=== PATIENT | female | born 1940 | race Caucasian/White ===

== ENCOUNTER 2017-02-09 08:41 | Day surgery (SDC) | payer MEDICARE ==
[~2017-02-09] VITALS: Ht 162.6 cm; Wt 65.8 kg
[~2017-02-09 08:41] MED LIST: AMLO10TA2 PO; CALC-545 PO; CHOL200024 PO; LEVO75TA5 PO; MAGN500T PO; METO25TA35 PO; VITA1TAB19 PO
[2017-02-09 09:29] VITALS: BP 121/72
[2017-02-09] MEDS ORDERED: LACTATED RINGERS 1,000 ML IV SCH (09:30)
[2017-02-09] MEDS ORDERED: FENTANYL PF 100 MCG/2ML ONE (10:56)
[2017-02-09] MEDS ORDERED: ONDANSETRON 2MG/ML, 2ML ONE (10:57)
[2017-02-09] MEDS ORDERED: DEXAMETHASONE 4 MG/ML, 1ML ONE (10:57)
[2017-02-09] MEDS ORDERED: PROPOFOL 10 MG/ML, 20ML ONE (10:57)
[2017-02-09] MEDS ORDERED: CIPROFLOXACIN/PMX 400MG/200ML 200 ML IVPB ONE (10:57)
[2017-02-09] MEDS ORDERED: ACETAMINOPHEN 650 MG/20.3 ML UDC ONE (11:47)
[2017-02-09] MEDS ORDERED: ACETAMINOPHEN 325 MG TABLET ONE (11:48)
[2017-02-09] MEDS ORDERED: ACETAMINOPHEN 325 MG TABLET PO PRN (12:30)
== END 2017-02-09 13:40 | disposition home or self-care (01) ==
LOC: OUT 08:41
PROVIDERS: ATTEND Specialist
DX: Z46.6 Encounter for fitting and adjustment of urinary device (principal); C56.9 Malignant neoplasm of unspecified ovary; I12.9 Hypertensive chronic kidney disease with stage 1 through stage 4 chronic kidney disease, or unspecified chronic kidney disease; N18.9 Chronic kidney disease, unspecified
CPT/HCPCS: 36415; 52332; 74000; 76000; 85610; 85730; 93005; C2617; J0744; J1100; J2405; J2704; J3010; J7120